=== PATIENT | female | born 1960 | race Caucasian/White ===

== ENCOUNTER 2021-03-19 05:33 | Outpatient (CLI) | payer OTHER ==
[~2021-03-19] VITALS: Ht 160 cm; Wt 69.0 kg
[2021-03-19] MEDS ORDERED: RT-ALBUINH IH (10:09)
== END 2021-03-19 11:26 | disposition home or self-care (01) ==
LOC: PREOP 05:33
PROVIDERS: ATTEND Surgery
DX: Z01.818 Encounter for other preprocedural examination (principal)

== ENCOUNTER 2021-03-26 10:34 | Day surgery (SDC) | payer OTHER ==
[2021-03-26] VITALS (9 sets, daily range): BP systolic 108–130; BP diastolic 60–80
[~2021-03-26] VITALS: Ht 160 cm; Wt 69.0 kg
[~2021-03-26 10:34] MED LIST: LACTATED RINGERS 1,000 ML IV ONE; RT-ALBUINH IH
[2021-03-26] MEDS ORDERED: PROPOFOL INJECTION 50 ML IV ONE (10:37)
[2021-03-26] MEDS ORDERED: MIDAZOLAM 2 MG/2 ML (VERSED) VIAL ONE (10:37)
[2021-03-26] MEDS ORDERED: LACTATED RINGERS 1,000 ML IV STA (10:37)
--- NOTE | 2021-03-26 11:00 | Progress Note-Pre Operative ---
Pre-Operative Progress Note H&P Reviewed The H&P was reviewed, patient examined and no changes noted. Date Seen by Provider: Mar 26, 2021 Time Seen by Provider: 10:55 Date H&P Reviewed: Mar 26, 2021 Time H&P Reviewed: 10:55 Pre-Operative Diagnosis: screening colon TANK WALKER DO Mar 26, 2021 11:00
--- NOTE | 2021-03-26 11:44 | Progress Note-Post Operative ---
Post-Operative Progess Note Surgeon (s)/Postpartum Nurse (s) Surgeon TANK WALKER DO Postpartum Nurse: na Pre-Operative Diagnosis screening colon Post-Operative Diagnosis colon polyps, diverticulosis Procedure & Operative Findings Date of Procedure 03/26/21 Procedure Performed/Findings colonoscopy c hot bx polypectomy x 1, snare polypectomy x 3 with selam inking of transverse colon polypectomy Anesthesia Type per popcorn attendant Estimated Blood Loss Estimated blood loss (mL): none Specimens/Packing Specimens Removed colon polyps TANK WALKER DO Mar 26, 2021 11:44
--- NOTE | 2021-03-26 11:57 | Discharge Inst-Simple/Standard ---
Discharge Inst-Standard Patient Instructions/Follow Up Plan of Care/Instructions/FU: 2 weeks Dona Activity as Tolerated: No Discharge Diet: Regular Diet (high fiber) TANK WALKER DO Mar 26, 2021 11:51
--- NOTE | 2021-03-26 16:52 | OPERATIVE REPORT ---
DATE OF SERVICE: 03/26/2021 PREOPERATIVE DIAGNOSIS: Screening colonoscopy. POSTOPERATIVE DIAGNOSES: Colon polyps, diverticulosis. PROCEDURE: Colonoscopy with hot biopsy polypectomy x1, snare polypectomy x3, Shiela inking of the large transverse colon polypectomy site. SURGEON: Tank Carcamo DO ANESTHESIA: Per WEATHERIZATION CREW LEADER. ESTIMATED BLOOD LOSS: None. COMPLICATIONS: None. INDICATIONS: The patient is a 60-year-old female needing screening colonoscopy. She understands risks and benefits of procedure and wished to proceed with procedure. Consent was signed in the chart. DESCRIPTION OF PROCEDURE: The patient was taken to the endoscopy suite, placed in left lateral recumbent position. Timeout was performed. Digital rectal exam was performed. Palpable polyp present on rectal exam. No other masses or ulcerations. Scope was inserted in the rectum and advanced all the way to cecum with minimal difficulty. Prep was adequate. Scope was then slowly retracted back. No polyps, masses or ulcerations in the cecum. The ileocecal valve was intubated. Terminal ileum appeared normal. Scope was then continuously retracted back in the ascending colon, a small polyp was present, which hot biopsy polypectomy was performed. Scope was then continued slowly retracted back. No other polyps, masses in the remainder of the ascending. In the transverse colon, a small polyp was present, which snare polypectomy was performed and suctioned without difficulty. Scope was then continued slowly retracted back. A larger pedunculated polyp was present, which snare polypectomy was performed. Just distal to this area, Shiela ink was injected into three different locations, 1 mL in each spot. The polyp had to be suctioned; therefore, scope was withdrawn removing the specimen. Scope was reinserted and advanced all the way to the location of that polypectomy. Scope was then continued slowly retracted back. No other polyps, masses or ulcerations within the remainder of the transverse, descending and sigmoid colon. There is some diverticulosis in the sigmoid colon. Scope was continuously retracted back in the rectum, it was also retroflexed noting the polyp in the rectum. Scope was returned to its normal position. Snare polypectomy was performed. This was able to be suctioned. Scope was then slowly retracted back to completely remove noting no other pathology. The patient tolerated procedure well without any complications. She was taken to recovery room in stable condition. RECOMMENDATIONS: The patient will follow up on pathology. The patient will need repeat colonoscopy in one year for reevaluation. Job ID: [id number] DocumentID: [id number] Dictated Date: 03/26/2021 12:09:46 Teacher Of Gifted Students Date: 03/26/2021 16:51:29 Dictated By: TANK CARCAMO DO
--- NOTE | 2021-03-30 13:16 | Anesthesia-General Post-Op ---
MAC Significant Intra-Op Events Notes Post op completed 03/26 1200 Patient Condition Mental Status/LOC: Same as Preop Cardiovascular: Satisfactory Nausea/Vomiting: Absent Respiratory: Satisfactory Pain: Controlled Complications: Absent Post Op Complications Complications None Follow Up Care/Instructions Patient Instructions None needed. Anesthesiology Discharge Order Discharge Order Patient is doing well, no complaints, stable vital signs, no apparent adverse anesthesia problems. No complications reported per nursing. LUCA MCNEILL CRNA March 30, 2021 13:16
== END 2021-03-26 13:30 | disposition home or self-care (01) ==
LOC: EDBD → SDC 10:34
PROVIDERS: ATTEND Surgery
DX: Z12.11 Encounter for screening for malignant neoplasm of colon (principal); D12.2 Benign neoplasm of ascending colon; D12.3 Benign neoplasm of transverse colon; D12.8 Benign neoplasm of rectum; K57.30 Diverticulosis of large intestine without perforation or abscess without bleeding; J45.909 Unspecified asthma, uncomplicated; K43.2 Incisional hernia without obstruction or gangrene; F17.210 Nicotine dependence, cigarettes, uncomplicated; Z79.51 Long term (current) use of inhaled steroids
CPT/HCPCS: 88305

== ENCOUNTER 2021-04-23 05:53 | Outpatient (CLI) | payer OTHER ==
[~2021-04-23] VITALS: Ht 160 cm; Wt 68.2 kg
[~2021-04-23 05:53] MED LIST changes: -LACTATED RINGERS 1,000 ML IV ONE
[2021-04-28] MEDS ORDERED: IBUP-2473 PO (08:52)
== END 2021-04-28 09:00 | disposition home or self-care (01) ==
LOC: PREOP 05:53
PROVIDERS: ATTEND Surgery
DX: Z01.818 Encounter for other preprocedural examination (principal)

== ENCOUNTER 2021-04-30 08:47 | Day surgery (SDC) | payer OTHER ==
[~2021-04-30] VITALS: Ht 160 cm; Wt 68.2 kg
[2021-04-30] VITALS (11 sets, daily range): BP systolic 123–147; BP diastolic 64–84
[~2021-04-30 08:47] MED LIST changes: +IBUP-2473 PO
[2021-04-30] MEDS ORDERED: LIDOCAINE/EPI 1%-1:100,000 (XYLOCAINE) 20ML ONE (09:09)
[2021-04-30] MEDS ORDERED: ceFAZolin INJECTION 1,000 MG in WATER (STERILE) FOR INJECTION 10 ML IV ONE (09:30)
[2021-04-30] MEDS: LACTATED RINGERS 1,000 ML IV PRN ×2 (09:35→10:25)
[2021-04-30] MEDS ORDERED: proPOfol 200 MG/20 ML (DIPRIVAN) VIAL IV ONE (09:44)
[2021-04-30] MEDS ORDERED: LIDOCAINE PF 2% 5 ML (XYLOCAINE) VIAL ONE (09:44)
[2021-04-30] MEDS ORDERED: ROCURONIUM 10 MG/ML 5 ML SYRINGE IV ONE (09:44)
[2021-04-30] MEDS ORDERED: ONDANSETRON 4 MG/2 ML (SDV) Z0FRAN ONE (09:44)
[2021-04-30] MEDS ORDERED: SEVOFLURANE (ULTANE) 15 ML INHAL SOLN ONE ×2 (09:44→11:00)
[2021-04-30] MEDS ORDERED: MIDAZOLAM 2 MG/2 ML (VERSED) VIAL ONE (09:44)
[2021-04-30] MEDS ORDERED: fentaNYL INJ 100 MCG/2 ML AMP ONE (09:45)
--- NOTE | 2021-04-30 09:48 | Progress Note-Pre Operative ---
Pre-Operative Progress Note H&P Reviewed The H&P was reviewed, patient examined and no changes noted. Date Seen by Provider: Apr 30, 2021 Time Seen by Provider: 09:47 Date H&P Reviewed: Apr 30, 2021 Time H&P Reviewed: 09:47 Pre-Operative Diagnosis: incisional hernia TANK WALKER DO Apr 30, 2021 09:48
[2021-04-30] MEDS ORDERED: GLYCOPYRROLATE 0.2 MG/ML (ROBINUL) 2 ML VIAL ONE (11:05)
[2021-04-30] MEDS ORDERED: NEOSTIGMINE 3 MG/3 ML VIAL ONE (11:05)
[2021-04-30] MEDS ORDERED: DOCU-143 PO (11:11)
[2021-04-30] MEDS ORDERED: ACHD5005 PO (11:11)
--- NOTE | 2021-04-30 11:12 | Discharge Inst-Simple/Standard ---
Discharge Inst-Standard Discharge Medications New, Converted or Re-Newed RX: Transmitted to Pharmacy Patient Instructions/Follow Up Plan of Care/Instructions/FU: 2-3 weeks Dona Activity as Tolerated: Yes Discharge Diet: Regular Diet Other Inst to Patient Follow up Appt: Make appointment for 2-3 week. Instructions: No lifting greater than 10 pounds. No strenuous activity. May shower in 24 hours, no tub bath or soaking. Use incentive spirometer at home as directed. No Smoking Skin/Wound Care: You have special glue over your incision that will fall off on it's own. Symptoms to Report: Appetite Changes, Extremity Discoloration, Numbness/Tingling, Swelling Increa sed, Bleeding Excessive, Eyesight Changes, Pain Increased, Urine Color Change, Constipation(Persistent), Fever over 101 degree F, Pain/Pressure in chest, Urinating Difficulty, Cough Up/Vomit Blood, Heart Beat Irreg/Pounding, Pain/Pressure in jaw, Vaginal Bleeding Increase, Cramps in feet or legs, Lightheadedness, Pain/Pressure in shoulder, Diarrhea(Persistent), Memory Changes Suddenly, Questions/Concerns, Weight gain consecutive days, Dizziness/Fainting, Nausea/Vomiting, Shortness of Breath, Weight gain over 2 pounds If questions or concerns contact your physician Or seek help at emergency department. TANK WALKER DO Apr 30, 2021 11:12
--- NOTE | 2021-04-30 11:18 | Progress Note-Post Operative ---
Post-Operative Progess Note Surgeon (s)/General Manager Land Department (s) Surgeon TANK WALKER DO General Manager Land Department: Dr. Franco to assist in retraction dissection and closure Pre-Operative Diagnosis incisional hernia Post-Operative Diagnosis incarerated incsional hernia Procedure & Operative Findings Date of Procedure 04/30/21 Procedure Performed/Findings PROCEDURE: Laparoscopic incarerated incisional hernia repair with mesh. COMPLICATIONS: None. INDICATIONS: The patient is a 60, female with an inisional hernia with incarcerated, which has continued to increase in size and cause discomfort. The patient was explained the risk and benefits of the procedure and wished to proceed with the procedure. Consent was signed on the chart. DESCRIPTION OF PROCEDURE: The patient was taken into the operating suite, prepped and draped in sterile fashion. Surgical pause was performed. Local anesthetic was infiltrated in left upper quadrant. A 15 blade scalpel was used to make a small skin incision. Cautery was used to dissect down to the fascia, which was then scored and divided the muscle, went through the posterior sheath and a balloon trocar was inserted into the abdomen. The abdomen was then insufflated. Incarcerated fat through defect and adhesions throughout abdomen. A 5 mm trocar was placed in the right lower quadrant and a 5 mm trocar was placed in left lower quadrant. Adhesions were taken down and hernia contents were dissected out of defect. Echo Ventralight mesh was then inserted in the abdomen grabbed through the stab incision. The balloon was inflated on the mesh. Circumferential tacks were placed with a SecureStrap Tacker. The balloon was then removed and inner crown was created as well. The mesh was tacked with pressure being decreased. The 12 mm fascial defect was then closed using 0 Vicryl. The abdomen was then desufflated,the trocars were removed. The skin was then closed using 4-0 Monocryl in a running subcuticular fashion. The abdomen was washed and dried and Skin Affix was placed over the incisions. The patient tolerated procedure well without any complications. She was taken to recovery room in stable condition. Anesthesia Type general Estimated Blood Loss Estimated blood loss (mL): minimal Specimens/Packing Specimens Removed hernia contents TANK WALKER DO Apr 30, 2021 11:18
[2021-04-30] MEDS ORDERED: morphine INJ 10 MG/ML 1ML (SYR OR VIAL) ONE (11:28)
[2021-04-30] MEDS ORDERED: morphine INJ 10 MG/ML 1ML (SYR OR VIAL) IVP ONE (11:30)
[2021-04-30] MEDS ORDERED: HYDROmorphone 2 MG/ML VIAL (DILAUDID) IV ONE (11:30)
[2021-04-30] MEDS ORDERED: ONDANSETRON 4 MG/2 ML (SDV) Z0FRAN IVP PRN (11:30)
[2021-04-30] MEDS ORDERED: MEPERIDINE (DEMEROL) INJ 50 MG/ML IVP ONE (11:30)
--- NOTE | 2021-04-30 11:51 | Anesthesia-General Post-Op ---
General Patient Condition Mental Status/LOC: Same as Preop Cardiovascular: Satisfactory Nausea/Vomiting: Absent Respiratory: Satisfactory Pain: Controlled Complications: Absent Post Op Complications Complications None Follow Up Care/Instructions Patient Instructions None needed. Anesthesia/Patient Condition Patient Condition Patient is doing well, no complaints, stable vital signs, no apparent adverse anesthesia problems. No complications reported per nursing. NASREEN ORO CRNA Apr 30, 2021 11:51
[2021-04-30] MEDS ORDERED: HYDROcodone/APAP 5 MG/325 MG (LORTAB) TAB ONE (12:40)
[2021-04-30] MEDS ORDERED: HYDROcodone/APAP 5 MG/325 MG (LORTAB) TAB PO ONE (12:45)
== END 2021-04-30 13:46 | disposition home or self-care (01) ==
LOC: SDC 08:47
PROVIDERS: ATTEND Surgery
DX: K43.0 Incisional hernia with obstruction, without gangrene (principal); J45.909 Unspecified asthma, uncomplicated; D12.6 Benign neoplasm of colon, unspecified; F17.210 Nicotine dependence, cigarettes, uncomplicated; Z79.899 Other long term (current) drug therapy; Z82.49 Family history of ischemic heart disease and other diseases of the circulatory system
CPT/HCPCS: 49655; 87081; 88302; 94664; C1781